=== PATIENT | male | born 1985 | race Caucasian/White ===

== ENCOUNTER 2021-02-13 17:32 | Inpatient (IN) ==
[2021-02-13] MEDS ORDERED: dexAMETHasone 4 MG TABLET PO STA (17:41)
[2021-02-13] MEDS ORDERED: Dexamethasone Sodium Phos/PF 10 MG/ML VIAL IVP ONE (17:45)
[2021-02-13 18:04] LABS: VBG HCO3 25 mEq/L (21-27); VBG PCO2 36 mmHg (41-51); VBG PH 7.44 pH Units (7.32-7.42); VBG PO2 53 mmHg (25-50)
[2021-02-13 18:10] LABS: Basophils % 0.1 %; Hematocrit 46.7 % (37.5-50.1); Hemoglobin 15.9 g/dL (12.9-16.9); Immature Granulocytes % 0.7 % (0-4); Lymphocytes # 1.2 K/mcL (0.6-4.6); Lymphocytes % 12.1 %; Mean Corpuscular Hemoglobin 27.9 pg (28.0-33.3); Mean Corpuscular Volume 82.1 fL (83.0-100.0); Mean Platelet Volume 10.6 fL (9.4-12.4); Monocytes # 0.6 K/mcL (0.0-1.3); Monocytes % 5.7 %; Neutrophils # 8.4 K/mcL (1.6-8.9); Platelet Count 279 K/mcL (140-400); Red Blood Count 5.69 M/mcL (4.19-5.50); Red Cell Distribution Width 13.7 % (11.5-14.5); Segmented Neutrophils % 81.4 %; White Blood Count 10.3 K/mcL (4.3-11.1)
[2021-02-13 18:30] LABS: BUN/Creatinine Ratio 27 (6-26); Blood Urea Nitrogen 29 mg/dL (6-20); Calcium 8.5 mg/dL (8.6-10.3); Carbon Dioxide 23 mEq/L (23-29); Chloride 95 mEq/L (98-107); Glucose 471 mg/dL (70-105); Osmolality,Calculated 305 (280-300); Potassium 3.8 mEq/L (3.5-5.1); Sodium 134 mEq/L (136-145); Troponin I < 0.03 ng/mL (< 0.04); eGFR For African Americans > 60 (> 60); eGFR For Non-African Americans > 60 (> 60)
[2021-02-13] MEDS ORDERED: Isovue-370 500 ML BOTTLE IVP ONE (18:31)
[2021-02-13 19:49] LABS: Influenza A PCR Negative (Negative); Influenza B PCR Negative (Negative); Resp. Syncytial Virus PCR Negative (Negative)
[2021-02-13 19:53] LABS: SARS-CoV-2 by PCR (In House) Positive (Negative)
[2021-02-13] MEDS ORDERED: Naloxone 0.4 MG/ML INJ IVP PRN (21:04)
[2021-02-13 21:48] LABS: Creatine Kinase 54 Units/L (30-223)
[2021-02-13] MEDS: Azithromycin 500 MG in 0.9 % Sodium Chloride 250 ML IVPB SCH (22:19)
[2021-02-13] MEDS ORDERED: Dextrose Gel 15 GM/37.5 ML TUBE PO PRN ×2 (23:18)
[2021-02-13] MEDS ORDERED: D5% in Water 1,000 ML IVC PRN (23:18)
[2021-02-13] MEDS ORDERED: *HR* Dextrose 50 % in Water (Vial) 50 ML VIAL IVP PRN (23:18)
[2021-02-14] MEDS: Insulin LISPRO 300 UNITS/3 ML VIAL SUBQ SCH ×6 (01:02→19:55)
[2021-02-14 02:39] LABS: Hemoglobin 15.2 g/dL (12.9-16.9); Mean Corpuscular HGB Conc 33.8 g/dL (31.6-35.5); Mean Platelet Volume 10.8 fL (9.4-12.4); Platelet Count 277 K/mcL (140-400); Red Blood Count 5.42 M/mcL (4.19-5.50); White Blood Count 7.8 K/mcL (4.3-11.1)
[2021-02-14 03:13] LABS: BUN/Creatinine Ratio 35 (6-26); Blood Urea Nitrogen 32 mg/dL (6-20); C-Reactive Protein 122 mg/L (Less than 10); Calcium 8.6 mg/dL (8.6-10.3); Carbon Dioxide 18 mEq/L (23-29); Chloride 96 mEq/L (98-107); Glucose 430 mg/dL (70-105); Osmolality,Calculated 305 (280-300); Sodium 135 mEq/L (136-145); eGFR For African Americans > 60 (> 60); eGFR For Non-African Americans > 60 (> 60)
[2021-02-14 03:19] LABS: Ferritin > 1500 ng/mL (20-250)
[2021-02-14 03:24] LABS: Estimated Average Glucose 263 mg/dl; Hemoglobin A1C 10.8 %
[2021-02-14] MEDS: Ipratropium 1 PUFF INHALER IH SCH ×7 (04:25→23:59)
[2021-02-14] MEDS: *HR* Enoxaparin 40 MG/0.4 ML SYRINGE SQ SCH (05:56)
[2021-02-14] MEDS ORDERED: Acetaminophen 325 MG TABLET PO PRN (07:33)
[2021-02-14] MEDS ORDERED: Dexamethasone Sodium Phos/PF 10 MG/ML VIAL IVP SCH (09:00)
[2021-02-14] MEDS ORDERED: Furosemide 20 MG/2 ML VIAL IVP ONE (09:41)
[2021-02-14] MEDS ORDERED: Insulin DETEMIR 100 UNIT/ML X5UNITS SUBQ SCH ×2 (10:00→21:00)
[2021-02-14 10:55] LABS: Albumin 3.6 g/dL (3.5-5.7); Albumin/Globulin Ratio 0.9 (1.1-2.2); Bilirubin,Direct 0.2 mg/dL (0.0-0.2); Bilirubin,Indirect 0.4 mg/dL (0.0-1.0); Bilirubin,Total 0.6 mg/dL (0.3-1.0); Globulin 3.9 g/dL (2.4-3.5); Total Protein 7.5 g/dL (6.4-8.9)
[2021-02-14] MEDS ORDERED: Remdesivir 200 MG in 0.9 % Sodium Chloride 100 ML IVPB ONE (11:45)
[2021-02-14] MEDS: Azithromycin 500 MG in 0.9 % Sodium Chloride 250 ML IVPB SCH (22:15)
[2021-02-15 03:01] LABS: Basophils % 0.3 %; Eosinophils % 0.1 %; Hematocrit 44.3 % (37.5-50.1); Hemoglobin 14.7 g/dL (12.9-16.9); Immature Granulocytes % 0.8 % (0-4); Lymphocytes # 1.1 K/mcL (0.6-4.6); Lymphocytes % 8.5 %; Mean Corpuscular HGB Conc 33.2 g/dL (31.6-35.5); Mean Corpuscular Hemoglobin 27.3 pg (28.0-33.3); Mean Corpuscular Volume 82.2 fL (83.0-100.0); Mean Platelet Volume 10.5 fL (9.4-12.4); Monocytes # 0.8 K/mcL (0.0-1.3); Monocytes % 6.7 %; Neutrophils # 10.5 K/mcL (1.6-8.9); Platelet Count 360 K/mcL (140-400); Red Blood Count 5.39 M/mcL (4.19-5.50); Segmented Neutrophils % 83.6 %
[2021-02-15 03:05] LABS: White Blood Count 12.5 K/mcL (4.3-11.1)
[2021-02-15 03:20] LABS: Alanine Aminotransferase 34 Units/L (7-52); Albumin 3.4 g/dL (3.5-5.7); Albumin/Globulin Ratio 0.9 (1.1-2.2); Alkaline Phosphatase 50 Units/L (34-104); Aspartate Amino Transferase 28 Units/L (13-39); BUN/Creatinine Ratio 44 (6-26); Bilirubin,Total 0.6 mg/dL (0.3-1.0); Blood Urea Nitrogen 39 mg/dL (6-20); Calcium 8.9 mg/dL (8.6-10.3); Carbon Dioxide 25 mEq/L (23-29); Chloride 100 mEq/L (98-107); Glucose 343 mg/dL (70-105); Lactate Dehydrogenase 323 Units/L (140-271); Osmolality,Calculated 311 (280-300); Platelet Estimate Normal (Normal); Potassium 3.3 mEq/L (3.5-5.1); Sodium 139 mEq/L (136-145); Total Protein 7.4 g/dL (6.4-8.9); eGFR For African Americans > 60 (> 60); eGFR For Non-African Americans > 60 (> 60)
[2021-02-15 03:36] LABS: Ferritin > 1500 ng/mL (20-250)
[2021-02-15] MEDS: Ipratropium 1 PUFF INHALER IH SCH ×6 (04:30→23:28)
[2021-02-15] MEDS: *HR* Enoxaparin 40 MG/0.4 ML SYRINGE SQ SCH (05:16)
[2021-02-15] MEDS: Insulin LISPRO 300 UNITS/3 ML VIAL SUBQ SCH ×7 (05:21→21:11)
[2021-02-15] MEDS: Cholecalciferol (D-3) 1,000 UNIT (25MCG) TABLET PO SCH (08:51)
[2021-02-15] MEDS: Dexamethasone Sodium Phos/PF 10 MG/ML VIAL IVP SCH (08:52)
[2021-02-15] MEDS: Insulin DETEMIR 100 UNIT/ML X5UNITS SUBQ SCH ×2 (08:52→21:08)
[2021-02-15] MEDS ORDERED: Furosemide 20 MG/2 ML VIAL IVP ONE (11:34)
[2021-02-15] MEDS: Remdesivir 100 MG in 0.9 % Sodium Chloride 100 ML IVPB SCH (12:34)
[2021-02-15] MEDS: levoFLOXacin 750 MG/150 ML 750 MG/150 ML BAG IVPB SCH (19:30)
[2021-02-15] MEDS ORDERED: Insulin LISPRO 300 UNITS/3 ML VIAL SUBQ SCH (21:00)
[2021-02-16] MEDS: Ipratropium 1 PUFF INHALER IH SCH ×6 (03:04→23:07)
[2021-02-16] MEDS: *HR* Enoxaparin 40 MG/0.4 ML SYRINGE SQ SCH (04:55)
[2021-02-16] MEDS: Dexamethasone Sodium Phos/PF 10 MG/ML VIAL IVP SCH (08:41)
[2021-02-16] MEDS: Cholecalciferol (D-3) 1,000 UNIT (25MCG) TABLET PO SCH (08:42)
[2021-02-16] MEDS: Insulin LISPRO 300 UNITS/3 ML VIAL SUBQ SCH ×7 (08:42→20:20)
[2021-02-16 08:54] LABS: Basophils # 0.1 K/mcL (0.0-0.2); Basophils % 0.7 %; Hematocrit 45.3 % (37.5-50.1); Hemoglobin 15.1 g/dL (12.9-16.9); Immature Granulocytes % 1.7 % (0-4); Lymphocytes # 1.3 K/mcL (0.6-4.6); Lymphocytes % 11.1 %; Mean Corpuscular HGB Conc 33.3 g/dL (31.6-35.5); Mean Corpuscular Hemoglobin 27.4 pg (28.0-33.3); Mean Corpuscular Volume 82.2 fL (83.0-100.0); Monocytes # 0.9 K/mcL (0.0-1.3); Monocytes % 7.9 %; Neutrophils # 9.1 K/mcL (1.6-8.9); Platelet Count 384 K/mcL (140-400); Red Blood Count 5.51 M/mcL (4.19-5.50); Red Cell Distribution Width 13.8 % (11.5-14.5); Segmented Neutrophils % 78.6 %; White Blood Count 11.6 K/mcL (4.3-11.1)
[2021-02-16 09:15] LABS: Alanine Aminotransferase 34 Units/L (7-52); Albumin 3.4 g/dL (3.5-5.7); Alkaline Phosphatase 51 Units/L (34-104); Aspartate Amino Transferase 36 Units/L (13-39); BUN/Creatinine Ratio 51 (6-26); Bilirubin,Total 0.8 mg/dL (0.3-1.0); Blood Urea Nitrogen 41 mg/dL (6-20); Calcium 8.9 mg/dL (8.6-10.3); Carbon Dioxide 25 mEq/L (23-29); Chloride 98 mEq/L (98-107); Globulin 3.5 g/dL (2.4-3.5); Glucose 341 mg/dL (70-105); Osmolality,Calculated 302 (280-300); Potassium 3.7 mEq/L (3.5-5.1); Sodium 134 mEq/L (136-145); Total Protein 6.9 g/dL (6.4-8.9); eGFR For African Americans > 60 (> 60); eGFR For Non-African Americans > 60 (> 60)
[2021-02-16 09:28] LABS: Anisocytosis 1+ (Not Present); Platelet Estimate Normal (Normal)
[2021-02-16] MEDS: Insulin DETEMIR 100 UNIT/ML X5UNITS SUBQ SCH ×2 (11:49→20:20)
[2021-02-16] MEDS: Remdesivir 100 MG in 0.9 % Sodium Chloride 100 ML IVPB SCH (11:50)
[2021-02-16] MEDS ORDERED: Furosemide 20 MG/2 ML VIAL IVP ONE (12:13)
[2021-02-16] MEDS: levoFLOXacin 750 MG/150 ML 750 MG/150 ML BAG IVPB SCH (15:17)
[2021-02-17] MEDS: Ipratropium 1 PUFF INHALER IH SCH ×6 (04:50→23:17)
[2021-02-17] MEDS: *HR* Enoxaparin 40 MG/0.4 ML SYRINGE SQ SCH (05:34)
[2021-02-17 07:46] LABS: Basophils # 0.1 K/mcL (0.0-0.2); Basophils % 0.4 %; Eosinophils % 0.2 %; Hematocrit 43.7 % (37.5-50.1); Hemoglobin 14.5 g/dL (12.9-16.9); Immature Granulocytes % 2.6 % (0-4); Lymphocytes # 1.3 K/mcL (0.6-4.6); Lymphocytes % 11.7 %; Mean Corpuscular HGB Conc 33.2 g/dL (31.6-35.5); Mean Corpuscular Hemoglobin 27.6 pg (28.0-33.3); Mean Corpuscular Volume 83.1 fL (83.0-100.0); Mean Platelet Volume 10.4 fL (9.4-12.4); Monocytes # 0.8 K/mcL (0.0-1.3); Monocytes % 7.3 %; Neutrophils # 8.8 K/mcL (1.6-8.9); Platelet Count 426 K/mcL (140-400); Red Blood Count 5.26 M/mcL (4.19-5.50); Red Cell Distribution Width 13.7 % (11.5-14.5); Segmented Neutrophils % 77.8 %; White Blood Count 11.3 K/mcL (4.3-11.1)
[2021-02-17 08:07] LABS: Alanine Aminotransferase 42 Units/L (7-52); Albumin 3.2 g/dL (3.5-5.7); Albumin/Globulin Ratio 0.9 (1.1-2.2); Alkaline Phosphatase 45 Units/L (34-104); Aspartate Amino Transferase 47 Units/L (13-39); BUN/Creatinine Ratio 51 (6-26); Bilirubin,Total 0.7 mg/dL (0.3-1.0); Blood Urea Nitrogen 43 mg/dL (6-20); Calcium 8.8 mg/dL (8.6-10.3); Carbon Dioxide 27 mEq/L (23-29); Chloride 98 mEq/L (98-107); Globulin 3.4 g/dL (2.4-3.5); Glucose 322 mg/dL (70-105); Lactate Dehydrogenase 304 Units/L (140-271); Osmolality,Calculated 303 (280-300); Potassium 3.4 mEq/L (3.5-5.1); Sodium 135 mEq/L (136-145); Total Protein 6.6 g/dL (6.4-8.9); eGFR For African Americans > 60 (> 60); eGFR For Non-African Americans > 60 (> 60)
[2021-02-17 08:25] LABS: Ferritin > 1500 ng/mL (20-250)
[2021-02-17] MEDS: Dexamethasone Sodium Phos/PF 10 MG/ML VIAL IVP SCH (08:36)
[2021-02-17] MEDS: Cholecalciferol (D-3) 1,000 UNIT (25MCG) TABLET PO SCH (08:38)
[2021-02-17] MEDS: Insulin DETEMIR 100 UNIT/ML X5UNITS SUBQ SCH ×2 (08:38→20:28)
[2021-02-17] MEDS: Insulin LISPRO 300 UNITS/3 ML VIAL SUBQ SCH ×7 (08:39→20:27)
[2021-02-17] MEDS: Remdesivir 100 MG in 0.9 % Sodium Chloride 100 ML IVPB SCH (12:46)
[2021-02-17] MEDS ORDERED: Furosemide 20 MG/2 ML VIAL IVP ONE (13:17)
[2021-02-17] MEDS: levoFLOXacin 750 MG/150 ML 750 MG/150 ML BAG IVPB SCH (14:26)
[2021-02-18] MEDS: Ipratropium 1 PUFF INHALER IH SCH ×6 (04:14→23:32)
[2021-02-18] MEDS: *HR* Enoxaparin 40 MG/0.4 ML SYRINGE SQ SCH (05:41)
[2021-02-18 05:47] LABS: Basophils % 0.1 %; Eosinophils % 0.3 %; Hematocrit 44.6 % (37.5-50.1); Hemoglobin 14.8 g/dL (12.9-16.9); Lymphocytes # 1.4 K/mcL (0.6-4.6); Lymphocytes % 12.1 %; Mean Corpuscular HGB Conc 33.2 g/dL (31.6-35.5); Mean Corpuscular Hemoglobin 27.7 pg (28.0-33.3); Mean Corpuscular Volume 83.4 fL (83.0-100.0); Mean Platelet Volume 10.6 fL (9.4-12.4); Monocytes # 0.9 K/mcL (0.0-1.3); Platelet Count 361 K/mcL (140-400); Red Blood Count 5.35 M/mcL (4.19-5.50); Red Cell Distribution Width 13.8 % (11.5-14.5); Segmented Neutrophils % 72.5 %; White Blood Count 11.5 K/mcL (4.3-11.1)
[2021-02-18 05:49] LABS: Neutrophils # 8.3 K/mcL (1.6-8.9)
[2021-02-18 06:09] LABS: Platelet Estimate Normal (Normal); Reactive Lymphocytes Present (Not Present)
[2021-02-18 06:12] LABS: Alanine Aminotransferase 59 Units/L (7-52); Albumin 3.4 g/dL (3.5-5.7); Alkaline Phosphatase 48 Units/L (34-104); Aspartate Amino Transferase 44 Units/L (13-39); BUN/Creatinine Ratio 50 (6-26); Bilirubin,Total 0.7 mg/dL (0.3-1.0); Blood Urea Nitrogen 44 mg/dL (6-20); Calcium 9.2 mg/dL (8.6-10.3); Carbon Dioxide 27 mEq/L (23-29); Chloride 98 mEq/L (98-107); Globulin 3.4 g/dL (2.4-3.5); Glucose 322 mg/dL (70-105); Osmolality,Calculated 302 (280-300); Potassium 4.2 mEq/L (3.5-5.1); Sodium 134 mEq/L (136-145); Total Protein 6.8 g/dL (6.4-8.9); eGFR For African Americans > 60 (> 60); eGFR For Non-African Americans > 60 (> 60)
[2021-02-18] MEDS: Cholecalciferol (D-3) 1,000 UNIT (25MCG) TABLET PO SCH (07:36)
[2021-02-18] MEDS: Dexamethasone Sodium Phos/PF 10 MG/ML VIAL IVP SCH (07:36)
[2021-02-18] MEDS: Insulin DETEMIR 100 UNIT/ML X5UNITS SUBQ SCH ×2 (07:42→22:15)
[2021-02-18] MEDS: Insulin LISPRO 300 UNITS/3 ML VIAL SUBQ SCH ×7 (07:43→22:14)
[2021-02-18] MEDS ORDERED: Furosemide 20 MG/2 ML VIAL IVP ONE (10:26)
[2021-02-18] MEDS ORDERED: Insulin DETEMIR 100 UNIT/ML X5UNITS SUBQ STA (10:26)
[2021-02-18] MEDS: Remdesivir 100 MG in 0.9 % Sodium Chloride 100 ML IVPB SCH (11:56)
[2021-02-18] MEDS: levoFLOXacin 750 MG/150 ML 750 MG/150 ML BAG IVPB SCH (14:41)
[2021-02-19] MEDS: Ipratropium 1 PUFF INHALER IH SCH ×5 (03:34→19:50)
[2021-02-19 05:10] LABS: Hematocrit 41.9 % (37.5-50.1); Mean Corpuscular HGB Conc 33.4 g/dL (31.6-35.5); Mean Corpuscular Hemoglobin 27.7 pg (28.0-33.3); Mean Corpuscular Volume 82.8 fL (83.0-100.0); Mean Platelet Volume 10.3 fL (9.4-12.4); Platelet Count 468 K/mcL (140-400); Red Blood Count 5.06 M/mcL (4.19-5.50); Red Cell Distribution Width 13.7 % (11.5-14.5); White Blood Count 12.9 K/mcL (4.3-11.1)
[2021-02-19] MEDS: *HR* Enoxaparin 40 MG/0.4 ML SYRINGE SQ SCH (05:25)
[2021-02-19 05:28] LABS: Alanine Aminotransferase 63 Units/L (7-52); Albumin 3.1 g/dL (3.5-5.7); Alkaline Phosphatase 42 Units/L (34-104); Aspartate Amino Transferase 33 Units/L (13-39); BUN/Creatinine Ratio 52 (6-26); Bilirubin,Total 0.5 mg/dL (0.3-1.0); Blood Urea Nitrogen 41 mg/dL (6-20); Carbon Dioxide 29 mEq/L (23-29); Chloride 101 mEq/L (98-107); Globulin 3.1 g/dL (2.4-3.5); Glucose 195 mg/dL (70-105); Lactate Dehydrogenase 240 Units/L (140-271); Osmolality,Calculated 301 (280-300); Potassium 3.3 mEq/L (3.5-5.1); Sodium 138 mEq/L (136-145); Total Protein 6.2 g/dL (6.4-8.9); eGFR For African Americans > 60 (> 60); eGFR For Non-African Americans > 60 (> 60)
[2021-02-19 05:35] LABS: Lymphocytes # 3.9 K/mcL (0.6-4.6); Monocytes # 1.3 K/mcL (0.0-1.3); Neutrophils # 7.7 K/mcL (1.6-8.9); Reactive Lymphocytes Present (Not Present)
[2021-02-19 05:44] LABS: Ferritin 1372 ng/mL (20-250)
[2021-02-19] MEDS: Cholecalciferol (D-3) 1,000 UNIT (25MCG) TABLET PO SCH (08:00)
[2021-02-19] MEDS: Insulin DETEMIR 100 UNIT/ML X5UNITS SUBQ SCH ×2 (08:02→20:22)
[2021-02-19] MEDS: Insulin LISPRO 300 UNITS/3 ML VIAL SUBQ SCH ×7 (08:03→20:22)
[2021-02-19] MEDS: Dexamethasone Sodium Phos/PF 10 MG/ML VIAL IVP SCH (08:05)
[2021-02-19] MEDS: levoFLOXacin 750 MG/150 ML 750 MG/150 ML BAG IVPB SCH (16:11)
[2021-02-20] MEDS: Ipratropium 1 PUFF INHALER IH SCH ×6 (00:13→20:20)
[2021-02-20 02:22] LABS: Hematocrit 42.3 % (37.5-50.1); Hemoglobin 13.7 g/dL (12.9-16.9); Mean Corpuscular HGB Conc 32.4 g/dL (31.6-35.5); Mean Corpuscular Hemoglobin 27.4 pg (28.0-33.3); Mean Corpuscular Volume 84.6 fL (83.0-100.0); Platelet Count 396 K/mcL (140-400); Red Cell Distribution Width 13.8 % (11.5-14.5); White Blood Count 12.9 K/mcL (4.3-11.1)
[2021-02-20 02:57] LABS: Alanine Aminotransferase 93 Units/L (7-52); Albumin 3.1 g/dL (3.5-5.7); Alkaline Phosphatase 40 Units/L (34-104); Aspartate Amino Transferase 52 Units/L (13-39); BUN/Creatinine Ratio 43 (6-26); Bilirubin,Total 0.5 mg/dL (0.3-1.0); Blood Urea Nitrogen 37 mg/dL (6-20); Calcium 9.1 mg/dL (8.6-10.3); Carbon Dioxide 24 mEq/L (23-29); Chloride 102 mEq/L (98-107); Globulin 3.2 g/dL (2.4-3.5); Glucose 290 mg/dL (70-105); Osmolality,Calculated 299 (280-300); Potassium 4.8 mEq/L (3.5-5.1); Sodium 135 mEq/L (136-145); Total Protein 6.3 g/dL (6.4-8.9); eGFR For African Americans > 60 (> 60); eGFR For Non-African Americans > 60 (> 60)
[2021-02-20 03:18] LABS: Lymphocytes # 1.8 K/mcL (0.6-4.6); Monocytes # 0.8 K/mcL (0.0-1.3); Neutrophils # 9.8 K/mcL (1.6-8.9); Platelet Estimate Normal (Normal); Reactive Lymphocytes Present (Not Present); Toxic Granulation Present (Not Present)
[2021-02-20] MEDS: *HR* Enoxaparin 40 MG/0.4 ML SYRINGE SQ SCH (05:43)
[2021-02-20] MEDS: Insulin LISPRO 300 UNITS/3 ML VIAL SUBQ SCH ×7 (08:48→22:14)
[2021-02-20] MEDS: Cholecalciferol (D-3) 1,000 UNIT (25MCG) TABLET PO SCH (08:49)
[2021-02-20] MEDS: Insulin DETEMIR 100 UNIT/ML X5UNITS SUBQ SCH ×2 (08:49→22:13)
[2021-02-20] MEDS: Dexamethasone Sodium Phos/PF 10 MG/ML VIAL IVP SCH (08:50)
[2021-02-21] MEDS: Ipratropium 1 PUFF INHALER IH SCH ×7 (00:11→23:09)
[2021-02-21 02:54] LABS: Hematocrit 40.8 % (37.5-50.1); Hemoglobin 13.5 g/dL (12.9-16.9); Mean Corpuscular HGB Conc 33.1 g/dL (31.6-35.5); Mean Corpuscular Volume 84.6 fL (83.0-100.0); Mean Platelet Volume 10.1 fL (9.4-12.4); Platelet Count 505 K/mcL (140-400); Red Blood Count 4.82 M/mcL (4.19-5.50); Red Cell Distribution Width 13.8 % (11.5-14.5); White Blood Count 14.9 K/mcL (4.3-11.1)
[2021-02-21 03:15] LABS: Alanine Aminotransferase 112 Units/L (7-52); Alkaline Phosphatase 37 Units/L (34-104); Aspartate Amino Transferase 52 Units/L (13-39); BUN/Creatinine Ratio 41 (6-26); Bilirubin,Total 0.4 mg/dL (0.3-1.0); Blood Urea Nitrogen 32 mg/dL (6-20); Calcium 8.9 mg/dL (8.6-10.3); Carbon Dioxide 24 mEq/L (23-29); Chloride 103 mEq/L (98-107); Glucose 268 mg/dL (70-105); Lactate Dehydrogenase 250 Units/L (140-271); Osmolality,Calculated 298 (280-300); Potassium 4.2 mEq/L (3.5-5.1); Sodium 136 mEq/L (136-145); eGFR For African Americans > 60 (> 60); eGFR For Non-African Americans > 60 (> 60)
[2021-02-21 03:33] LABS: Ferritin 1219 ng/mL (20-250)
[2021-02-21 03:51] LABS: Lymphocytes # 2.4 K/mcL (0.6-4.6); Monocytes # 0.6 K/mcL (0.0-1.3); Neutrophils # 10.1 K/mcL (1.6-8.9)
[2021-02-21 03:52] LABS: Anisocytosis 1+ (Not Present); Platelet Estimate Normal (Normal)
[2021-02-21] MEDS: *HR* Enoxaparin 40 MG/0.4 ML SYRINGE SQ SCH (06:04)
[2021-02-21] MEDS: Insulin LISPRO 300 UNITS/3 ML VIAL SUBQ SCH ×7 (08:22→22:24)
[2021-02-21] MEDS: Cholecalciferol (D-3) 1,000 UNIT (25MCG) TABLET PO SCH (08:23)
[2021-02-21] MEDS: Insulin DETEMIR 100 UNIT/ML X5UNITS SUBQ SCH ×2 (08:23→22:30)
[2021-02-21] MEDS: Dexamethasone Sodium Phos/PF 10 MG/ML VIAL IVP SCH (08:41)
[2021-02-21] MEDS: dexAMETHasone 4 MG TABLET PO SCH (09:46)
[2021-02-22] MEDS: Ipratropium 1 PUFF INHALER IH SCH ×3 (03:51→12:18)
[2021-02-22] MEDS: *HR* Enoxaparin 40 MG/0.4 ML SYRINGE SQ SCH (06:23)
[2021-02-22 06:29] VITALS: TEMP 97.4
[2021-02-22] MEDS: dexAMETHasone 4 MG TABLET PO SCH (08:27)
[2021-02-22] MEDS: Cholecalciferol (D-3) 1,000 UNIT (25MCG) TABLET PO SCH (08:27)
[2021-02-22] MEDS: Insulin LISPRO 300 UNITS/3 ML VIAL SUBQ SCH ×4 (08:28→12:09)
[2021-02-22] MEDS: Insulin DETEMIR 100 UNIT/ML X5UNITS SUBQ SCH (08:28)
[2021-02-22] MEDS ORDERED: *HR* Glimepiride 2 MG TABLET PO SCH (09:00)
[2021-02-22] MEDS ORDERED: *HR* Metformin 500 MG TABLET PO SCH (09:00)
[2021-02-22] MEDS ORDERED: *HR* Pioglitazone 30 MG TABLET PO SCH (09:00)
[2021-02-22 11:14] VITALS: BP 131/96; PULSE 89
[2021-02-22 12:26] VITALS: O2SAT 93
== END 2021-02-22 15:05 | disposition home or self-care (01) | DRG 871 ==
LOC: EMEROOARM 17:32 → 2NENU 17:32 → SUATTDRO 20:41 → OBSVTOIN 20:41 → 2NENU 21:10
PROVIDERS: ADMIT Internal Medicine; ATTEND Family Medicine